=== PATIENT | female | born 1975 | race Asian ===

== ENCOUNTER 2016-07-18 12:45 | Outpatient (CLI) | payer OTHER | END 2016-07-18 19:23 | disposition home or self-care (01) | LOC: MAMMO 12:45 | DX: Z12.31 Encounter for screening mammogram for malignant neoplasm of breast (principal) | CPT/HCPCS: G0202-TC ==

== ENCOUNTER 2017-12-28 09:51 | Outpatient (CLI) | payer OTHER | END 2017-12-28 20:41 | disposition home or self-care (01) | LOC: MAMMO 09:51 | DX: Z12.31 Encounter for screening mammogram for malignant neoplasm of breast (principal) ==

== ENCOUNTER 2018-03-13 12:59 | Outpatient (CLI) | payer OTHER | END 2018-03-13 23:33 | disposition home or self-care (01) | LOC: MAMMO 12:59 | DX: N63.0 Unspecified lump in unspecified breast (principal) ==

== ENCOUNTER 2019-05-02 00:48 | Emergency (ER) | payer OTHER ==
[~2019-05-02] VITALS: Ht 157.5 cm; Wt 78.5 kg
[~2019-05-02 00:48] MED LIST: CLARITIN10 M1 PO; EPIPEN 2-P0.3 MG/0.3 IM; FIORICET 50-3001 CAP PO; LIPITOR40 MG PO; LISITAB PO
[2019-05-02 01:40] VITALS: BP 141/92; TEMP 98.4
== END 2019-05-02 01:40 | disposition home or self-care (01) ==
LOC: ED 00:48
DX: S05.01XA Injury of conjunctiva and corneal abrasion without foreign body, right eye, initial encounter (principal)
CPT/HCPCS: 99283

== ENCOUNTER 2019-06-15 19:42 | Emergency (ER) | payer OTHER ==
[~2019-06-15] VITALS: Ht 157.5 cm; Wt 78.5 kg
[2019-06-15] MEDS ORDERED: CELEXA10 MG PO (20:09)
[2019-06-15 21:28] VITALS: BP 138/96; TEMP 98.4
== END 2019-06-15 21:29 | disposition home or self-care (01) ==
LOC: ED 19:42
DX: N39.0 Urinary tract infection, site not specified (principal)
CPT/HCPCS: 80307; 81000; 81025; 87086; 87088; 99283

== ENCOUNTER → 2019-08-15 11:58 | Outpatient (CLI) | payer OTHER ==
[~2019-08-15 11:58] MED LIST changes: +CELEXA10 MG PO
== END | disposition home or self-care (01) ==
LOC: AMB 11:58
DX: Z04.1 Encounter for examination and observation following transport accident (principal)

== ENCOUNTER 2021-09-17 13:38 | Outpatient (CLI) | payer OTHER | END 2021-09-17 21:48 | disposition home or self-care (01) | LOC: MAMMO 13:38 | PROVIDERS: ATTEND Specialist | DX: Z12.31 Encounter for screening mammogram for malignant neoplasm of breast (principal) ==